=== PATIENT | female | born 1945 | race Caucasian/White ===

== ENCOUNTER 2017-03-23 21:28 | Emergency (ER) | payer MEDICARE ==
--- NOTE | ~2017-03-23 | ER ---
ADMIT: 03/23/2017 RM/LOC: ER [facility] MR#: [id number] [facility] [address] [place], [place] [id number] [place] [address] Emergency Room Report SEX: F AGE: 72 : 1945 DATE: 03/23/2017 ADDENDUM: A 72-year-old female, comes in for evaluation of potassium. Apparently, she got a call after hours from the office stating that potassium was high, but the message was left on their voice mail and she did not know how high it was, so they came in to be checked here this evening. She had had a routine visit at her doctor's office, had blood drawn earlier in the day. She really has no other complaints, and she is currently being treated for significant pedal edema and cellulitis of the left leg. I did check her potassium here today and it was 5.7 with a sodium of 126. Her creatinine was 1.9, and she had admission earlier in the year for renal failure with creatinines in the 4s at that time. She normally takes Lasix 40 mg every morning. I am going to have her take a double dose of her Lasix tomorrow morning and then call Dr. Freire's office to arrange for followup to recheck her potassium and her sodium. DIAGNOSES: 1. Hyperkalemia. 2. Hyponatremia. Lars Jackson MD/ pedrol JOB #: [id number] CC: Lars Jackson MD, Attending Physician Sofie Freire MD, Family Physician
[~2017-03-23 21:28] MED LIST: COLACE-DPS100 MG PO; DUONEB DPS3 ML IH; FLAGYL-DPS500 MG PO; LASIX DPS20 MG PO; LEVAQUIN DPS750 MG PO; OXY IR DPS5 MG PO; PROAIR HFA8.5 GM IH; PROBIOTIC1 EAC1 PO; TYLENOL DPS325 MG PO; VIBRAMYCIN-DPS100 M2 PO; XARELTO15 MG PO; ZOFRAN4 MG PO
== END 2017-03-24 00:36 | disposition home or self-care (01) ==
LOC: ER 21:28
DX: E87.5 Hyperkalemia (principal); E87.1 Hypo-osmolality and hyponatremia; J45.909 Unspecified asthma, uncomplicated; Z79.01 Long term (current) use of anticoagulants; Z79.899 Other long term (current) drug therapy